=== PATIENT | female | born 1995 | race Caucasian/White ===

== ENCOUNTER 2019-01-03 16:33 | Emergency (ER) | payer OTHER ==
[2019-01-03] MEDS ORDERED: NORMAL SALINE 1000 ML 1,000 ML IV ONE ×2 (16:59→19:42)
[2019-01-03] MEDS ORDERED: ONDANSETRON HCL INJ/PF 4 MG/2 ML SDV IV ONE (16:59)
--- NOTE | 2019-01-03 17:01 | ER Document Report ---
ED Medical Screen (RME) - General Chief Complaint: Pain With Urination Stated Complaint: BODY PAIN Time Seen by Provider: 01/03/19 16:59 Mode of Arrival: Ambulatory Information source: Patient Notes: Patient presents stating that she feels like she has a UTI. Patient does complain of generalized body aches abdominal and back pain with nausea. Patient denies any vomiting or fever. Patient states she is felt like she had a UTI for the past week. I have greeted and performed a rapid initial assessment of this patient. A comprehensive ED assessment and evaluation of the patient, analysis of test results and completion of the medical decision making process will be conducted by additional ED providers. TRAVEL OUTSIDE OF THE [place] IN LAST 30 DAYS: No - Related Data Allergies/Adverse Reactions: No Known Allergies Allergy (Verified 01/03/19 16:39) Physical Exam - Vital signs Vitals: Temp Pulse Resp BP Pulse Ox 98.2 F 132 H 16 119/68 100 01/03/19 16:41 01/03/19 16:41 01/03/19 16:41 01/03/19 16:41 01/03/19 16:41 - Cardiovascular Rhythm: Tachycardia Heart sounds: S1 appreciated, S2 appreciated Murmur: No Course - Vital Signs Vital signs: Temp Pulse Resp BP Pulse Ox 98.2 F 132 H 16 119/68 100 01/03/19 16:41 01/03/19 16:41 01/03/19 16:41 01/03/19 16:41 01/03/19 16:41
[2019-01-03 17:28] LABS: ABSOLUTE LYMPHOCYTES (AUTO) 0.5 10^3/uL (0.5-4.7); ABSOLUTE MONOCYTES (AUTO) 0.4 10^3/uL (0.1-1.4); ABSOLUTE NEUT (AUTO) 7.9 10^3/uL (1.7-8.2); BASOPHILS % (AUTO) 0.1 % (0-2); EOSINOPHILS % (AUTO) 0.5 % (0-6); HEMATOCRIT 41.6 % (36.0-47.0); HEMOGLOBIN 14.6 g/dL (12.0-15.5); LYMPHOCYTES % (AUTO) 6.1 % (13-45); MEAN CORPUSCULAR HEMOGLOBIN 29.9 pg (27.0-33.4); MEAN CORPUSCULAR HGB CONC 35.2 g/dL (32.0-36.0); MEAN CORPUSCULAR VOLUME 85 fl (80-97); MONOCYTES % (AUTO) 4.3 % (3-13); PLATELET COUNT 224 10^3/uL (150-450); TOTAL CELLS COUNTED % (AUTO) 100 %; WHITE BLOOD COUNT 8.9 10^3/uL (4.0-10.5)
[2019-01-03 17:42] LABS: ALANINE AMINOTRANSFERASE 16 U/L (9-52); ALBUMIN 4.8 g/dL (3.5-5.0); ALKALINE PHOSPHATASE 62 U/L (38-126); ANION GAP 9 (5-19); ASPARTATE AMINO TRANSFERASE 50 U/L (14-36); BILIRUBIN,DIRECT 0.7 mg/dL (0.0-0.4); BILIRUBIN,TOTAL 1.7 mg/dL (0.2-1.3); BLOOD UREA NITROGEN 15 mg/dL (7-20); CALCIUM 9.6 mg/dL (8.4-10.2); CARBON DIOXIDE 23 mmol/L (22-30); CHLORIDE 106 mmol/L (98-107); GLUCOSE 95 mg/dL (75-110); POTASSIUM 4.8 mmol/L (3.6-5.0); SODIUM 137.9 mmol/L (137-145); TOTAL PROTEIN 7.9 g/dL (6.3-8.2)
[2019-01-03 17:44] LABS: APPEARANCE,URINE TURBID; BILIRUBIN,URINE NEGATIVE (NEGATIVE); COLOR,URINE YELLOW; GLUCOSE, URINE NEGATIVE (NEGATIVE); KETONES,URINE NEGATIVE (NEGATIVE); LEUKOCYTE ESTERASE,URINE LARGE (NEGATIVE); NITRITE,URINE NEGATIVE (NEGATIVE); PROTEIN,URINE 30 mg/dL (NEGATIVE); URINE SPECIFIC GRAVITY 1.024; UROBILINOGEN,URINE NEGATIVE mg/dL (<2.0)
[2019-01-03] MEDS ORDERED: ONDANSETRON ODT 4 MG TAB (6 TAB/ER DISP) PO PRN (19:43)
[2019-01-03] MEDS ORDERED: KETOROLAC TROMETHAMINE INJ/PF 30 MG/1 ML SDV IV ONE (19:43)
[2019-01-03] MEDS ORDERED: CEPHALEXIN 500 MG CAPSULE PO ONE (19:43)
--- NOTE | 2019-01-03 19:44 | ER Document Report ---
ED General - General Chief Complaint: Pain With Urination Stated Complaint: BODY PAIN Time Seen by Provider: 01/03/19 16:59 Mode of Arrival: Ambulatory Notes: 23-year-old female with no past medical history presents to the emergency department with chief complaint of feelings of a UTI. She also has generalized body aches and lower abdominal pain bilaterally. She does complain of nausea but no vomiting. Denies fevers, chills, shortness of breath or chest pain, urinary frequency, complains of dysuria worse at the end of micturition, denies any abnormal vaginal discharge. Denies any dizziness or lightheadedness. Of note Patient presents stating that she feels like she has a UTI. Patient does complain of generalized body aches abdominal and back pain with nausea. Patient denies any vomiting or fever. Patient states she is felt like she had a UTI for the past week. TRAVEL OUTSIDE OF THE [place] IN LAST 30 DAYS: No - Related Data Allergies/Adverse Reactions: No Known Allergies Allergy (Verified 01/03/19 16:39) Past Medical History - General Information source: Patient - Social History Smoking Status: Never Smoker Chew tobacco use (# tins/day): No Drug Abuse: None Family History: None Patient has suicidal ideation: No Patient has homicidal ideation: No Renal/ Medical History: Denies: Hx Peritoneal Dialysis Review of Systems - Review of Systems Constitutional: See HPI EENT: No symptoms reported Cardiovascular: See HPI Respiratory: See HPI Gastrointestinal: See HPI Genitourinary: See HPI Female Genitourinary: See HPI Musculoskeletal: No symptoms reported Skin: No symptoms reported Hematologic/Lymphatic: No symptoms reported Neurological/Psychological: No symptoms reported Physical Exam - Vital signs Vitals: Temp Pulse Resp BP Pulse Ox 98.2 F 132 H 16 119/68 100 01/03/19 16:41 01/03/19 16:41 01/03/19 16:41 01/03/19 16:41 01/03/19 16:41 - Notes Notes: PHYSICAL EXAMINATION: Reviewed vital signs and charting by RN GENERAL: Alert, interacts well. No acute distress. HEAD: Normocephalic, atraumatic. EYES: Pupils equal and round. Extraocular movements intact. ENT: Oral mucosa moist, tongue midline. NECK: Full range of motion. Supple. Trachea midline. LUNGS: Clear to auscultation bilaterally, no wheezes, rales, or rhonchi. No respiratory distress. HEART: Regular rate and rhythm. No murmur ABDOMEN: soft, tender to palpation suprapubic area. Non-distended. Bowel sounds present. no McBurney's point tenderness, no Pelaez sign. EXTREMITIES: Moves all 4 extremities spontaneously. No edema, No cyanosis. Normal distal neurovascular exam BACK: Right CVAT NEUROLOGIC: Oriented and appropriate. Normal speech. PSYCH: Normal affect, normal mood. SKIN: Warm, dry, normal turgor. No rashes or lesions noted. Course - Re-evaluation Re-evalutation: 01/03/19 19:41 Overall well-appearing. Patient responded to normal saline 1 L give her an additional 1 L. She also has generalized body aches and we will give her Toradol 15 mg IV 1 time. I will give her Keflex first dose here as she has a UTI. Patient is otherwise safe and stable to discharge home. Her tachycardia has mostly resolved and she is well-appearing. - Vital Signs Vital signs: Temp Pulse Resp BP Pulse Ox 98.1 F 89 18 116/67 100 01/03/19 21:49 01/03/19 21:49 01/03/19 21:49 01/03/19 21:49 01/03/19 21:49 - Laboratory Result Diagrams: 01/03/19 17:15 01/03/19 17:15 Laboratory results interpreted by me: 01/03/19 01/03/19 01/03/19 17:02 17:15 17:15 Seg Neutrophils % 89.0 H Lymphocytes % 6.1 L Total Bilirubin 1.7 H Direct Bilirubin 0.7 H AST 50 H Urine Protein 30 H Urine Blood MODERATE H Ur Leukocyte Esterase LARGE H Discharge - Discharge Clinical Impression: Urinary tract infection, Nausea Condition: Good Disposition: HOME, SELF-CARE Instructions: Cephalexin ([facility]), Urinary Tract Infection ([facility]) Additional Instructions: Your urine shows findings consistent with a urinary tract infection. Please take all the antibiotics as directed even if your symptoms have improved. Please follow-up with your primary care physician as needed. Return to emergency room if you develop fever >101F, persistent vomiting, become leth argic, have severe pain in your sides, or any other symptoms that are concerning to you. Prescriptions: RX: Cephalexin Monohydrate [Keflex 500 mg Capsule] 500 mg PO BID 7 Days #14 capsule Forms: Return to Work
--- NOTE | 2019-01-03 20:48 | EKG REPORT ---
SEVERITY:- BORDERLINE ECG - SINUS RHYTHM PROBABLE LEFT ATRIAL ABNORMALITY BORDERLINE T ABNORMALITIES, INFERIOR LEADS : Confirmed by: Flory Snyder MD 03-Jan-2019 20:47:30
[2019-01-03 21:50] VITALS: BP 116/67
== END 2019-01-03 21:51 | disposition home or self-care (01) ==
LOC: ER 16:33
DX: N39.0 Urinary tract infection, site not specified (principal); R11.0 Nausea
CPT/HCPCS: 93005; 99283; 96361; 96374; 96375; 36415; 87086; 83605; 84703; 85025; 87088; 80053; 81001; 87186; 93010; J1885; J2405; J7030

== ENCOUNTER 2019-09-28 05:50 | Emergency (ER) | payer BC, OTHER ==
[2019-09-28 06:58] LABS: ABSOLUTE BASOPHILS # (AUTO) 0.1 10^3/uL (0.0-0.2); ABSOLUTE LYMPHOCYTES (AUTO) 1.3 10^3/uL (0.5-4.7); ABSOLUTE MONOCYTES (AUTO) 0.4 10^3/uL (0.1-1.4); ABSOLUTE NEUT (AUTO) 8.6 10^3/uL (1.7-8.2); BASOPHILS % (AUTO) 0.5 % (0-2); EOSINOPHILS % (AUTO) 0.4 % (0-6); HEMOGLOBIN 13.5 g/dL (12.0-15.5); LYMPHOCYTES % (AUTO) 12.3 % (13-45); MEAN CORPUSCULAR HEMOGLOBIN 29.6 pg (27.0-33.4); MEAN CORPUSCULAR HGB CONC 35.5 g/dL (32.0-36.0); MEAN CORPUSCULAR VOLUME 84 fl (80-97); MONOCYTES % (AUTO) 4.1 % (3-13); PLATELET COUNT 208 10^3/uL (150-450); RED BLOOD COUNT 4.55 10^6/uL (3.72-5.28); RED CELL DISTRIBUTION WIDTH 12.2 % (11.5-14.0); SEGMENTED NEUTROPHILS % (AUTO) 82.7 % (42-78); TOTAL CELLS COUNTED % (AUTO) 100 %; WHITE BLOOD COUNT 10.4 10^3/uL (4.0-10.5)
[2019-09-28 06:58] LABS: APPEARANCE,URINE SLIGHTLY-CLOUDY; BILIRUBIN,URINE NEGATIVE (NEGATIVE); COLOR,URINE YELLOW; GLUCOSE, URINE NEGATIVE (NEGATIVE); KETONES,URINE TRACE mg/dL (NEGATIVE); LEUKOCYTE ESTERASE,URINE SMALL (NEGATIVE); NITRITE,URINE NEGATIVE (NEGATIVE); PROTEIN,URINE 30 mg/dL (NEGATIVE); UROBILINOGEN,URINE NEGATIVE mg/dL (<2.0)
--- NOTE | 2019-09-28 07:14 | ER Document Report ---
ED General - General Chief Complaint: Flank Pain Stated Complaint: LOWER ABDOMINAL PAIN Time Seen by Provider: 09/28/19 06:45 Notes: 24-year-old female presents emergency department complaining of sudden onset of sharp stabbing right low back and right lower quadrant abdominal pain around 230 this morning. Patient thought she might feel better if she tried to have a bowel movement but she could not. Patient was then able to go back to sleep after using heating pad however it woke her up again approximately 30 minutes later. At that point she was able to have a bowel movement but it did not change her pain. Patient has since developed vomiting. States she has a history of UTIs and it feels similar to when she had in high school but significantly worse. Denies dysuria, denies frequency, denies vaginal discharge or new sexual partners. Has no history of kidney stones and no history of appendicitis. TRAVEL OUTSIDE OF THE [place] IN LAST 30 DAYS: No - Related Data Allergies/Adverse Reactions: No Known Allergies Allergy (Verified 01/03/19 16:39) Past Medical History - General Information source: Patient - Social History Smoking Status: Never Smoker Chew tobacco use (# tins/day): No Frequency of alcohol use: None Drug Abuse: None Family History: None Patient has suicidal ideation: No Patient has homicidal ideation: No Renal/ Medical History: Denies: Hx Peritoneal Dialysis Review of Systems - Review of Systems Constitutional: No symptoms reported Gastrointestinal: See HPI, Abdominal pain, Vomiting Genitourinary: See HPI, Flank pain -: Yes All other systems reviewed and negative Physical Exam - Vital signs Vitals: Temp Pulse Resp BP Pulse Ox 98.0 F 71 18 129/90 H 98 09/28/19 06:24 09/28/19 06:24 09/28/19 06:24 09/28/19 06:24 09/28/19 06:24 Interpretation: Normal - Notes Notes: GENERAL: Alert, interacts well. No acute distress. HEAD: Normocephalic, atraumatic EYES: Pupils equal, round and reactive to light, extraocular movements intact. ENT: Oral mucosa moist, tongue midline. NECK: Full range of motion, supple, trachea midline. LUNGS: Clear to auscultation bilaterally, no wheezes, rales or rhonchi, no respiratory distress. HEART: Regular rate and rhythm, no murmurs, gallops, rubs. ABDOMEN: Soft, mildly right lower quadrant tenderness palpation, mild right low back and lateral muscle tenderness to palpation in the lumbar paraspinal region, nondistended, bowel sounds present in all 4 quadrants. BACK: Erythema noted to the right mid and upper back consistent with history of falling asleep on a heating pad. EXTREMITIES: Moves all 4 extremities spontaneously, no edema, radial and dorsalis pedis pulses 2/4 bilaterally. No cyanosis. NEUROLOGICAL: Alert and oriented x3, normal speech. PSYCH: Normal mood, normal affect. SKIN: Warm, Dry, normal turgor, no rashes or lesions noted. Course - Re-evaluation Re-evalutation: 09/28/19 09:50 CBC unremarkable, CMP unremarkable, lipase normal, urinalysis shows large blood and small leukocyte Estrace, test negative, CT scan shows recently passed a stone in the bladder as well as multiple stones in the kidney. Discussed with patient that her pain should steadily improve from here on out, use NSAIDs and Pyridium, drink plenty of fluids and discharged home. No evidence of true infection. Leukocyte esterase is likely related to the blood in the urine. - Vital Signs Vital signs: Temp Pulse Resp BP Pulse Ox 98.0 F 71 18 129/90 H 98 09/28/19 06:24 09/28/19 06:24 09/28/19 06:24 09/28/19 06:24 09/28/19 06:24 - Laboratory Result Diagrams: 09/28/19 06:44 09/28/19 06:44 Laboratory results interpreted by me: 09/28/19 09/28/19 09/28/19 06:20 06:44 06:44 Lymph % (Auto) 12.3 L Absolute Neuts (auto) 8.6 H Seg Neutrophils % 82.7 H Glucose 113 H Urine Protein 30 H Urine Ketones TRACE H Urine Blood LARGE H Ur Leukocyte Esterase SMALL H Discharge - Discharge Clinical Impression: Recently passed kidney stone, Ureterolithiasis Condition: Stable Disposition: HOME, SELF-CARE Additional Instructions: You have passed a kidney stone into your bladder. Your pain should steadily improve. You may have a small amount of discomfort when you pee the kidney stone out of your bladder. Some people have no discomfort at all when they P the kidney stone out of the bladder. Please take ibuprofen 800 mg every 8 hours to help decrease your pain. You should also take Pyridium, this is the same thing as Azo which is available [id number], it will help to numb your kidneys, ureters and bladder to decrease the pain as the stone moves. Please return to the emergency department for worsening pain, temperature of 100.4 greater or any new or concerning symptoms. Forms: Return to Work
[2019-09-28 07:19] LABS: ALBUMIN 4.4 g/dL (3.5-5.0); ALKALINE PHOSPHATASE 63 U/L (38-126); ANION GAP 12 (5-19); ASPARTATE AMINO TRANSFERASE 24 U/L (14-36); BILIRUBIN,DIRECT 0.2 mg/dL (0.0-0.4); BILIRUBIN,TOTAL 0.6 mg/dL (0.2-1.3); BLOOD UREA NITROGEN 16 mg/dL (7-20); CARBON DIOXIDE 26 mmol/L (22-30); CHLORIDE 103 mmol/L (98-107); GLUCOSE 113 mg/dL (75-110); POTASSIUM 3.8 mmol/L (3.6-5.0); TOTAL PROTEIN 7.4 g/dL (6.3-8.2)
[2019-09-28] MEDS ORDERED: NORMAL SALINE 1000 ML 1,000 ML IV ONE (07:33)
[2019-09-28] MEDS ORDERED: KETOROLAC TROMETHAMINE 60 MG/2 ML SDV IV ONE (07:33)
[2019-09-28] MEDS ORDERED: ONDANSETRON HCL INJ/PF 4 MG/2 ML SDV IV ONE (07:33)
--- NOTE | 2019-09-28 08:48 | RADIOLOGY REPORT (SQ) ---
EXAM DESCRIPTION: CT ABD/PELVIS NO ORAL OR IV COMPLETED DATE/TIME: 09/28/2019 8:24 am REASON FOR STUDY: RLQ pain, flank pain, hematuria, r/o stone COMPARISON: None. TECHNIQUE: CT scan of the abdomen and pelvis performed without intravenous or oral contrast. Images reviewed with lung, soft tissue, and bone windows. Reconstructed coronal and sagittal MPR images revi ewed. All images stored on PACS. All CT scanners at this facility use dose modulation, iterative reconstruction, and/or weight based d osing when appropriate to reduce radiation dose to as low as reasonably achievable (ALARA). [facility]: Dose Right [facility]: CareDose [facility]: Dose Right [facility]: Teradose 4D [facility]: Divide RADIATION DOSE: CT Rad equipment meets quality standard of care and radiation dose reduction techniq ues were employed. CTDIvol: 5.3 mGy. DLP: 288 mGy-cm.mGy. LIMITATIONS: None. FINDINGS: LOWER CHEST: No significant findings. No nodules or infiltrates. NON-CONTRASTED LIVER, SPLEEN, ADRENALS: Evaluation limited by lack of IV contrast. No identified sign ificant masses. PANCREAS: No masses. No peripancreatic inflammatory changes. GALLBLADDER: No identified stones by CT criteria. No inflammatory changes to suggest cholecystitis. RIGHT KIDNEY AND URETER: No solid masses. There is mild right hydronephrosis and hydroureter. There is a small calcification which appears to be adjacent to although not within the distal right ureter (series 3, image 76). There are multiple additional small nonobstructive calculi in the right kidne y. LEFT KIDNEY AND URETER: No solid masses. No significant calcification. No hydronephrosis or hydrouret er. AORTA AND RETROPERITONEUM: No aneurysm. No retroperitoneal masses or adenopathy. BOWEL AND PERITONEAL CAVITY: No obvious masses or inflammatory changes. No free fluid. APPENDIX: Normal. PELVIS, BLADDER, AND ABDOMINAL WALL:No abnormal masses. No free fluid. There is a 2 mm calculus in t he dependent urinary bladder (series 3, image 83). BONES: No significant findings. OTHER: No other significant finding. IMPRESSION: There is mild right hydronephrosis and hydroureter. There is a small calcification which appears to be adjacent to although not within the distal right ureter (series 3, image 76). There is a 2 mm calculus in the dependent urinary bladder (series 3, image 83). Findings favor a recently pa ssed calculus rather than actively obstructive nephrolithiasis. There are multiple additional small nonobstructive calculi in the right kidney. TECHNICAL DOCUMENTATION: JOB ID: [id number] Quality ID # [id number]: Final reports with documentation of one or more dose reduction techniques (e.g., Au tomated exposure control, adjustment of the mA and/or kV according to patient size, use of iterative reconstruction technique) 2010 [employer]- All Rights Reserved Reading location - IP/workstation name: [email or web address]
[2019-09-28 10:05] VITALS: BP 106/52
== END 2019-09-28 10:04 | disposition home or self-care (01) ==
LOC: ER 05:50
DX: N13.2 Hydronephrosis with renal and ureteral calculous obstruction (principal); N21.0 Calculus in bladder; M54.5 Low back pain; R10.31 Right lower quadrant pain; R11.10 Vomiting, unspecified; Z87.440 Personal history of urinary (tract) infections; R10.9 Unspecified abdominal pain
CPT/HCPCS: 99284; 96361; 96374; 96375; 36415; 83690; 85025; 81025; 80053; 81001; 74176; J1885; J2405; J7030